=== PATIENT | male | born 1975 | race Two or more races ===

== ENCOUNTER 2022-05-21 17:00 | Outpatient (CLI) | payer BC | END 2022-05-21 17:01 | disposition home or self-care (01) | LOC: SLEEPLAB 17:00 | PROVIDERS: ATTEND Nurse Practitioner Family | DX: R06.83 Snoring (principal); G47.33 Obstructive sleep apnea (adult) (pediatric); R53.83 Other fatigue; I10 Essential (primary) hypertension; G47.00 Insomnia, unspecified; G47.10 Hypersomnia, unspecified; R06.02 Shortness of breath; E66.9 Obesity, unspecified; Z68.38 Body mass index [BMI] 38.0-38.9, adult | CPT/HCPCS: 95810 ==

== ENCOUNTER 2025-04-21 14:11 | Outpatient (CLI) | payer BC | END 2025-04-21 14:12 | disposition home or self-care (01) | LOC: ULT 14:11 | PROVIDERS: ATTEND Family Medicine | DX: I15.9 Secondary hypertension, unspecified (principal) | CPT/HCPCS: 76770; 93975 ==

== ENCOUNTER 2025-05-01 09:46 | Outpatient (CLI) | payer BC | END 2025-05-01 09:47 | disposition home or self-care (01) | LOC: ULT 09:46 | PROVIDERS: ATTEND Family Medicine | DX: K46.9 Unspecified abdominal hernia without obstruction or gangrene (principal) | CPT/HCPCS: 76705 ==